=== PATIENT | male | born 1945 | race Caucasian/White ===

== ENCOUNTER 2018-01-15 12:04 | Inpatient (IN) | payer MEDICARE, OTHER ==
[~2018-01-15] VITALS: Ht 165.1 cm; Wt 72.2 kg
[~2018-01-15 12:04] MED LIST: BACITRACIN 50,000 UNIT ONE; BUPIVACAINE/PF-EPI 0.5% 1:200K ONE; LABE100T6 PO; OXYCODONE PO; RANI150T23 PO; ROSU5TAB PO; THROMBIN 20,000 UNIT VIAL TP ONE; VALTREX PO
[2018-01-15] MEDS ORDERED: ONDANSETRON ODT 8 MG PO ONE (15:00)
[2018-01-15] MEDS ORDERED: ACETAMINOPHEN 500 MG TABLET PO ONE (15:00)
[2018-01-15] MEDS ORDERED: GABAPENTIN 300 MG CAPSULE PO ONE (16:00)
[2018-01-15] MEDS ORDERED: LACTATED RINGERS 1,000 ML IV SCH (16:00)
[2018-01-15] MEDS ORDERED: MIDAZOLAM 1 MG/ML, 2ML ONE (16:27)
[2018-01-15] MEDS ORDERED: SUCCINYLCHOLINE 20 MG/ML, 10ML ONE (16:28)
[2018-01-15] MEDS ORDERED: LIDOCAINE-MPF 2% ,5ML ONE (16:28)
[2018-01-15] MEDS ORDERED: PROPOFOL 10 MG/ML, 20ML ONE (16:28)
[2018-01-15] MEDS ORDERED: ROCURONIUM 10MG/ML,5ML ONE (16:28)
[2018-01-15] MEDS ORDERED: DEXAMETHASONE 4 MG/ML, 1ML ONE ×2 (16:28)
[2018-01-15] MEDS ORDERED: FENTANYL PF 250 MCG/5ML ONE (16:28)
[2018-01-15] MEDS ORDERED: CEFAZOLIN 1,000 MG ONE ×2 (16:33)
[2018-01-15] MEDS ORDERED: KETAMINE 100 MG/ML, 5ML ONE (17:43)
[2018-01-15] MEDS ORDERED: PROPOFOL 50 ML ONE (17:54)
[2018-01-15] MEDS ORDERED: DIPHENHYDRAMINE 50 MG/ML, 1ML IVPush PRN ×2 (19:00→22:00)
[2018-01-15] MEDS ORDERED: MORPHINE SULFATE 4 MG/ML, 1ML IVPush PRN (19:00)
[2018-01-15] MEDS ORDERED: LABETALOL 5MG/ML, 20ML IV PRN ×2 (19:00→22:00)
[2018-01-15] MEDS ORDERED: MEPERIDINE/PF 25MG/0.5ML IVPush PRN (19:00)
[2018-01-15] MEDS ORDERED: MIDAZOLAM 1 MG/ML, 2ML IV PRN (19:00)
[2018-01-15] MEDS ORDERED: ALBUTEROL SULFATE 2.5 MG/3 ML NPPB PRN (19:00)
[2018-01-15] MEDS ORDERED: DIAZEPAM 5 MG/ML, 2ML IVPush PRN (19:00)
[2018-01-15] MEDS ORDERED: EPHEDRINE 50 MG/ML, 1ML IVPush PRN (19:00)
[2018-01-15] MEDS ORDERED: OXYcodone 5 MG/5 ML ORAL.SOL UDC PO PRN (19:00)
[2018-01-15] MEDS ORDERED: hydrALAzine 20 MG/ML, 1ML IV PRN (19:00)
[2018-01-15] MEDS ORDERED: PROCHLORPERAZINE 5 MG/ML, 2ML IV PRN (19:00)
[2018-01-15] MEDS ORDERED: METOPROLOL 1 MG/ML, 5ML IV PRN (19:00)
[2018-01-15] MEDS ORDERED: ONDANSETRON 2MG/ML, 2ML ONE (19:28)
[2018-01-15] MEDS ORDERED: HYDROmorphone 2 MG/ML, 1ML ONE (19:56)
[2018-01-15] MEDS ORDERED: FENTANYL PF 100 MCG/2ML ONE (19:56)
[2018-01-15] MEDS: HYDROmorphone 1 MG/ML, 1ML IV PRN ×3 (19:59→20:31)
[2018-01-15] MEDS: FENTANYL PF 100 MCG/2ML IV PRN ×2 (19:59→20:17)
[2018-01-15] MEDS ORDERED: OXYcodone 5 MG/5 ML ORAL.SOL UDC ONE (20:01)
[2018-01-15] MEDS ORDERED: LORazepam 2 MG/ML, 1ML ONE (20:06)
[2018-01-15] MEDS: LORazepam 2 MG/ML, 1ML IVPush PRN ×2 (20:09→20:46)
[2018-01-15] MEDS ORDERED: ZOLPIDEM 5MG TABLET PO PRN (21:00)
[2018-01-15] MEDS ORDERED: PHARMACY MAY ADJ FOR RENAL FX MC PRN (22:00)
[2018-01-15] MEDS ORDERED: MAGNESIUM HYDROXIDE 8%, 30ML UDC PO PRN (22:00)
[2018-01-15] MEDS ORDERED: METHOCARBAMOL 750 MG TABLET PO PRN (22:00)
[2018-01-15] MEDS ORDERED: HYDROmorphone 2MG TABLET PO PRN (22:00)
[2018-01-15] MEDS ORDERED: KETOROLAC 30 MG/1 ML IV ONE (22:00)
[2018-01-15] MEDS ORDERED: BISACODYL 10 MG SUPP PR PRN (22:00)
[2018-01-15] MEDS ORDERED: ACETAMINOPHEN 325 MG TABLET PO PRN (22:00)
[2018-01-15] MEDS ORDERED: ONDANSETRON 2MG/ML, 2ML IV PRN (22:00)
[2018-01-15] MEDS ORDERED: ACETAMINOPHEN 650 MG SUPP PR PRN (22:00)
[2018-01-15] MEDS ORDERED: PROMETHAZINE 25 MG/ML, 1ML IM PRN (22:00)
[2018-01-15] MEDS ORDERED: HYDROmorphone 2 MG/ML, 1ML IM PRN (22:00)
[2018-01-15] MEDS ORDERED: METHOCARBAMOL 1,000 MG in DEXTROSE 5% 100 ML IV ONE (22:00)
[2018-01-15] MEDS ORDERED: OXYcodone/APAP 10/325MG TABLET PO PRN (22:30)
[2018-01-15] MEDS: NS + 20MEQ KCL 1,000 ML IV SCH (22:41)
[2018-01-16 00:21] VITALS: BP 123/63
[2018-01-16] MEDS: CEFAZOLIN PMX 2GM/50ML 50 ML IVPB SCH ×2 (01:54→09:16)
[2018-01-16 03:47] VITALS: BP 115/73
[2018-01-16] MEDS ORDERED: METHOCARBAMOL 750 MG in DEXTROSE 5% 100 ML IV SCH (06:00)
[2018-01-16 07:19] VITALS: BP 151/79
[2018-01-16] MEDS ORDERED: FAMOTIDINE 20 MG TABLET PO SCH (09:00)
[2018-01-16] MEDS: KETOROLAC 30 MG/1 ML IM SCH ×2 (09:00→10:38)
[2018-01-16] MEDS ORDERED: LABETALOL 200 MG TABLET PO SCH (09:00)
[2018-01-16] MEDS ORDERED: SENNA/DOCUSATE TABLET PO SCH (09:00)
[2018-01-16] MEDS: NS + 20MEQ KCL 1,000 ML IV SCH (10:03)
[2018-01-16] MEDS ORDERED: ATORVASTATIN 10 MG TABLET PO SCH (21:00)
[2018-01-18] MEDS ORDERED: METHOCARBAMOL 750 MG TABLET PO SCH (06:00)
== END 2018-01-16 10:57 | disposition home or self-care (01) | DRG 519 ==
LOC: ORIP 13:39 → 4NOR 21:34
PROVIDERS: ADMIT Neurological Surgery; ATTEND Neurological Surgery
PROC: 0SB20ZZ Excision of Lumbar Vertebral Disc, Open Approach (ICD-10-PCS; 2018-01-15)
PROC: 4A11X4G Monitoring of Peripheral Nervous Electrical Activity, Intraoperative, External Approach (ICD-10-PCS; 2018-01-15)
PROC: 01NB0ZZ Release Lumbar Nerve, Open Approach (ICD-10-PCS; principal; 2018-01-15 16:00)
DX: M48.061 Spinal stenosis, lumbar region without neurogenic claudication (principal); G95.20 Unspecified cord compression; M51.26 Other intervertebral disc displacement, lumbar region; M19.90 Unspecified osteoarthritis, unspecified site; Z88.8 Allergy status to other drugs, medicaments and biological substances; Z79.899 Other long term (current) drug therapy
CPT/HCPCS: 72100; G0378; J0690; J1100; J1170; J1885; J2250; J2270; J2405; J2704; J3010; J3480; J3490; Q0162; C9352; J0330; J2060; J2800; J7120